=== PATIENT | male | born 1955 | race Caucasian/White ===

== ENCOUNTER 2019-12-11 03:03 | Emergency (ER) | payer SELFPAY | END 2019-12-11 03:53 | disposition home or self-care (01) | LOC: ERS 03:03 | DX: M79.662 Pain in left lower leg (principal); I10 Essential (primary) hypertension; F17.210 Nicotine dependence, cigarettes, uncomplicated; Z79.899 Other long term (current) drug therapy | CPT/HCPCS: 99283 ==

== ENCOUNTER 2020-03-15 17:11 | Emergency (ER) | payer SELFPAY ==
[~2020-03-15 17:11] MED LIST: Iopamidol-370 76% 500 ML 1 ML ONE
[2020-03-15 18:01] LABS: #Basophils 0.1 thou/uL (0.0-0.2); #Eosinphils 0.6 thou/uL (0.0-0.7); #Lymphocytes 3.3 thou/uL (1.20-3.40); #Monocytes 0.9 thou/uL (0.11-0.59); #Neutrophils 3.9 thou/uL (1.40-6.50); %Basophils 1.3 % (0.0-1.0); %Eosinophils 6.3 % (0.0-10.0); %Monocytes 10.3 % (0.0-10.0); Hemoglobin 14.4 g/dL (14.0-18.0); Mean Corpuscular HGB CONC 33.3 g/dL (32.0-36.0); Mean Corpuscular Hemoglobin 30.3 pg (27.0-31.0); Mean Corpuscular Volume 90.8 fL (78.0-98.0); Mean Platelet Volume 7.8 fL (7.4-10.4); Platelet Count 289 thou/uL (130-400); RBC Distribution Width 11.8 % (11.5-14.5); Red Blood Cell (RBC) Count 4.77 mill/uL (4.70-6.10); White Blood Cell (WBC) Count 8.8 thou/uL (4.8-10.8)
[2020-03-15 18:29] LABS: ALT (SGPT) 11 U/L (8-55); AST (SGOT) 18 U/L (5-34); Albumin 4.3 g/dL (3.4-4.8); Alkaline Phosphatase 64 U/L (40-110); Anion Gap 12 mmol/L (10-20); BUN (Urea Nitrogen) 10 mg/dL (8.4-25.7); Bilirubin, Total 0.4 mg/dL (0.2-1.2); Calc. Creatinine Clearance 0 mL/min (70-130); Carbon Dioxide 29 mmol/L (23-31); Chloride 104 mmol/L (98-107); Estimated GFR-MDRD 86; Globulin 3.1 g/dL (2.4-3.5); Glucose 78 mg/dL (80-115); Potassium 4.6 mmol/L (3.5-5.1); Protein, Total 7.4 g/dL (5.8-8.1); Sodium 140 mmol/L (136-145)
[2020-03-15 18:36] LABS: Bacteria/HPF None Seen HPF (None Seen); Bilirubin Negative (Negative); Blood, Urine Trace (Negative); Clarity Clear (Clear); Glucose, Urine (Dipstick) Normal (Negative); Leukocyte Negative Leu/uL (Negative); Nitrite Negative (Negative); Protein, Urine (Dipstick) Negative (Neg-Trace); RBC/HPF 0-3 HPF (0-3); Squamous Epithelial None Seen HPF (0-3); Urobilinogen Normal mg/dL (Less than 2); WBC/HPF 0-3 HPF (0-3)
--- NOTE | 2020-03-15 20:38 | CT ---
CT ABDOMEN AND PELVIS WITH CONTRAST: History: Flank pain Comparison: None FINDINGS: Lung bases are clear. No pericardial effusion. There are small hepatic hypodensities, too small to characterize. The gallbladder is unremarkable. Sp ev and pancreas unremarkable. Adrenal glands are unremarkable. The appendix is visualized and is normal. No dilated loops of large or small bowel. The celiac trunk and superior mesenteric arteries are patent. Advanced degenerative disc space changes of the lower murali mbar spine with neural foraminal narrowing at L4-5 and L5-S1. Modic III endplate changes L5-S1. 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 Celiac trunk and superior mesenteric ar prudencio as well as the inferior mesenteric artery are patent. No hydronephrosis. IMPRESSION: No acute inflammatory process within the abdomen or pelvis. POS: HOME
== END 2020-03-15 20:20 | disposition home or self-care (01) ==
LOC: ERS 17:11
DX: R10.31 Right lower quadrant pain (principal); I10 Essential (primary) hypertension; F17.210 Nicotine dependence, cigarettes, uncomplicated; Z79.899 Other long term (current) drug therapy
CPT/HCPCS: 36415; 74177; 80053; 81003; 81015; 83690; 85025; Q9967

== ENCOUNTER 2023-01-22 09:24 | Outpatient (CLI) | payer MEDICARE | END 2023-01-22 09:25 | disposition home or self-care (01) | LOC: BICULT 09:24 | PROVIDERS: ATTEND Registered Nurse | DX: Z12.2 Encounter for screening for malignant neoplasm of respiratory organs (principal); F17.210 Nicotine dependence, cigarettes, uncomplicated; Z13.6 Encounter for screening for cardiovascular disorders | CPT/HCPCS: 71271; 76706 ==

== ENCOUNTER 2023-08-16 18:34 | Emergency (ER) | payer MEDICARE | END 2023-08-16 19:54 | disposition home or self-care (01) | LOC: ERS 18:34 | DX: R20.2 Paresthesia of skin (principal); I10 Essential (primary) hypertension; M54.32 Sciatica, left side; F17.210 Nicotine dependence, cigarettes, uncomplicated | CPT/HCPCS: 99283 ==

== ENCOUNTER 2023-12-16 14:12 | Emergency (ER) | payer MEDICARE | END 2023-12-16 14:51 | disposition home or self-care (01) | LOC: ERS 14:12 | DX: K04.7 Periapical abscess without sinus (principal); I10 Essential (primary) hypertension; Z79.899 Other long term (current) drug therapy | CPT/HCPCS: 99282 ==